=== PATIENT | female | born 1995 | race African-American/Black ===

== ENCOUNTER 2019-05-18 11:49 | Inpatient (IN) | payer OTHER ==
[2019-05-18] MEDS ORDERED: XYLOCAINE 2% INFILTRATI ONE ×2 (13:23→15:27)
[2019-05-18] MEDS ORDERED: STADOL IV PRN (13:23)
[2019-05-18] MEDS ORDERED: BRETHINE IVP PRN (13:23)
[2019-05-18] MEDS ORDERED: ZOFRAN IV PRN ×2 (13:23→20:57)
[2019-05-18] MEDS ORDERED: SUBLIMAZE IV PRN (13:23)
[2019-05-18] MEDS ORDERED: MINERAL OIL PO PRN (13:23)
[2019-05-18] MEDS ORDERED: BRETHINE SUB-Q PRN (13:23)
--- NOTE | 2019-05-18 13:23 | History and Physical Report ---
History of Present Illness Date of examination: 05/18/19 Date of admission: 05/18/19 12:52 Chief complaint: Labor History of present illness: Pt is a 23yo AF EDC 05/30/19; EGA 38 2/7 weeks presents to L&D complaining of RUC's q 3-4 mins. She received care at [facility] since 10 weeks and course has been unremarkable. records are available and GBS is Negative. Past History Past Medical History: no pertinent history Past Surgical History: no surgical history Family/Genetic History: none Social history: no significant social history, single - Obstetrical History Expected Date of Delivery: 05/30/19 Actual Gestation: 38 Week(s) 2 Day(s) : 1 Medications and Allergies Allergies Allergy/AdvReac Type Severity Reaction Status Date / Time No Known Allergies Allergy Verified 05/18/19 13:41 Review of Systems All systems: negative - Vital Signs Vital signs: Vital Signs Temp Resp 98.9 F 14 05/18/19 12:00 05/18/19 12:00 Temp Pulse Resp BP Pulse Ox 98.9 F 72 14 122/79 05/18/19 12:00 05/18/19 12:04 05/18/19 12:00 05/18/19 12:04 - Physical Exam Breasts: Positive: deferred Cardiovascular: Regular rate Lungs: Positive: Clear to auscultation Abdomen: Positive: normal appearance Genitourinary (Female): Positive: normal external genitalia Vagina: Positive: normal moisture Uterus: Positive: enlarged Extremities: Positive: normal - Obstetrical FHR: category 1 Uterine Contraction Monitor Mode: External Uterine Tone Measurement Phase: Contraction Uterine Contraction Intensity: Strong/Firm Results Result Diagrams: 05/18/19 13:55 All other labs normal. Assessment and Plan - Patient Problems (1) 38 weeks gestation of Onset Date: 05/18/19 Current Visit: Yes Status: Acute Plan to address problem: A: IUP @ 38 2/7 weeks in labor P: Admit to L&D for expectant vaginal delivery
[2019-05-18] MEDS ORDERED: PITOCin/NS 30 UNIT/500ML 30 UNITS/500 ML BAG IV SCH ×2 (14:00)
[2019-05-18] MEDS ORDERED: LACTATED RINGERS 1,000 ML IV SCH (14:00)
[2019-05-18 14:46] LABS: Hematocrit 33.2 % (30.3-42.9); Hemoglobin 11.2 gm/dl (10.1-14.3); Mean Corpuscular HGB Conc 34 % (30-34); Mean Corpuscular Volume 94 fl (79-97); Platelet Count 138 K/mm3 (140-440); Red Blood Count 3.55 M/mm3 (3.65-5.03); Red Cell Distribution Width 13.1 % (13.2-15.2)
[2019-05-18] MEDS: PITOCin/NS 20 UNIT/1000ML DRIP 20 UNITS/1,000 ML BAG IV SCH ×2 (15:34→17:17)
--- NOTE | 2019-05-18 15:51 | Procedure Note ---
OB Delivery Note - Delivery Date of Delivery: 05/18/19 Surgeon: LEO RUSSELL Estimated blood loss: other (150cc) - Vaginal Delivery presentation: vertex Delivery position: OA Intrapartum events: none Delivery induction: none Delivery augmentation: rupture of membranes Delivery monitor: external FHT, external uterine Route of delivery: Delivery placenta: spontaneous Delivery cord: nuchal cord, 3 umbilical vessels Episiotomy: none Delivery laceration: none Anesthesia: none Delivery comments: Infant delivered OA and placed on Mom's chest for [id number] bonding and delayed cord clamping, cut by Dad - Infant A at 1 minute: 8 at 5 minutes: 9 Infant Gender: Male (3358gms)
[2019-05-18] MEDS ORDERED: PITOCin/NS 20 UNIT/1000ML DRIP 20,000 MILLIUNITS/1,000 ML BAG IV ONE (18:08)
[2019-05-18] MEDS ORDERED: IBUPROFEN PO PRN (20:55)
[2019-05-18] MEDS ORDERED: NORCO 5/325 PO PRN (20:56)
[2019-05-18] MEDS ORDERED: MILK OF MAGNESIA PO PRN (20:57)
[2019-05-18] MEDS ORDERED: PHENERGAN PR PRN (20:57)
[2019-05-18] MEDS ORDERED: BENADRYL PO PRN (20:57)
[2019-05-18] MEDS ORDERED: TYLENOL PO PRN (20:57)
[2019-05-18] MEDS ORDERED: TUCKS PAD TP PRN (20:57)
[2019-05-18] MEDS ORDERED: PHENERGAN PO PRN (20:57)
[2019-05-18] MEDS ORDERED: DULCOLAX PR PRN (20:57)
[2019-05-18] MEDS ORDERED: LANSINOH TP PRN (20:57)
[2019-05-18] MEDS ORDERED: SODIUM CHLORIDE FLUSH SYRINGE 10 ML IV NR (21:00)
[2019-05-18] MEDS ORDERED: PITOCin/NS 20 UNIT/1000ML DRIP 20 UNITS/1,000 ML BAG IV SCH (21:00)
--- NOTE | 2019-05-19 06:40 | Progress Note ---
Assessment and Plan - Patient Problems (1) 38 weeks gestation of Onset Date: 05/18/19 Current Visit: Yes Status: Resolved (2) (normal spontaneous vaginal delivery) Onset Date: 05/19/19 Current Visit: Yes Status: Resolved Plan to address problem: A: S/P - PPD #1 Doing well Asymptomatic anemia - stable P: May go home tomorrow. Subjective - Subjective Date of service: 05/19/19 Principal diagnosis: s/p - PPD #1 Interval history: Pt is feeling well without complaints. Bleeding improved. Patient reports: appetite normal, voiding normally, pain well controlled, flatus, ambulating normally, no dizzy ambulation, no nauseated Onia: doing well, nursing well, bottle feeding Objective - Vital Signs Latest vital signs: Vital Signs Temp Pulse Resp BP BP Pulse Ox 05/19/19 02:05 98.3 F 85 16 118/77 99 05/18/19 19:57 98.4 F 89 16 121/78 98 05/18/19 17:45 98.5 F 84 18 121/73 97 05/18/19 17:13 98.6 F 89 16 123/71 123/71 05/18/19 16:37 81 114/63 05/18/19 16:22 89 123/77 05/18/19 16:07 82 119/74 05/18/19 15:50 98.9 F 85 18 133/69 05/18/19 13:54 98.8 F 78 16 122/68 122/68 05/18/19 12:04 72 122/79 05/18/19 12:00 98.9 F 14 Intake and Output 05/18/19 05/18/19 05/19/19 14:59 22:59 06:59 Intake Total 334.583 240 Output Total 900 700 Balance -565.417 -460 Intake: IV 214.583 PITOCin/NS 20 UNIT/1000ML 214.583 DRIP 20 units In 1,000 ml @ 125 mls/hr IV DIRECT TRINIDAD Rx#:[id number] Intake, Free Water 120 240 Output: Urine 900 700 Void 900 700 Other: Total, Output Amount 500 400 # Voids Void 1 3 Weight 67.132 kg Estimated Blood Loss 150 Patient Weight 05/19/19 06:59 Weight 67.132 kg - Exam Breasts: Present: deferred Abdomen: Present: normal appearance Uterus: Present: normal, firm, fundal height below umbilicus Extremities: Present: normal - Labs Labs: Abnormal lab results 05/18/19 Range/Units 13:55 WBC 12.7 H (4.5-11.0) K/mm3 RBC 3.55 L (3.65-5.03) M/mm3 RDW 13.1 L (13.2-15.2) % Plt Count 138 L (140-440) K/mm3 Laboratory Tests 05/18/19 05/18/19 13:55 13:55 WBC 12.7 H RBC 3.55 L Hgb 11.2 Hct 33.2 MCV 94 MCH 32 MCHC 34 RDW 13.1 L Plt Count 138 L Blood Type A POSITIVE Antibody Screen Negative
--- NOTE | 2019-05-19 07:16 | Discharge Summary ---
Providers - Providers Date of Admission: 05/18/19 12:52 Date of discharge: 05/20/19 Attending physician: LEO RUSSELL Primary care physician: LEO RUSSELL Hospitalization Reason for admission: active labor, rupture of membranes, IUP at term Delivery: Episiotomy: none Laceration: none Incision: normal Other procedures: none complications: none Discharge diagnosis: IUP at term delivered baby: male Hospital course: Unremarkable. Condition at discharge: Good Disposition: DC-01 TO HOME OR SELFCARE - Discharge Diagnoses (1) 38 weeks gestation of Status: Resolved (2) (normal spontaneous vaginal delivery) Status: Resolved Plan - Discharge Medications Prescriptions: Ferrous Sulfate [Feosol 325 MG tab] 325 mg PO BID #60 tablet Ibuprofen [Motrin 600 MG tab] 600 mg PO Q6H #30 tablet Vit-Fe Fumar-FA [ Vitamin] 1 each PO QDAY #30 tablet - Provider Discharge Summary Activity: routine, no sex for 6 weeks, no heavy lifting 4 weeks, no strenuous exercise Diet: routine Instructions: routine Additional instructions: [] Smoking cessation referral if applicable(refer to patient education folder for contact #) [] Refer to [facility] Booklet Call your doctor immediately for: * Fever > 100.5 * Heavy vaginal bleeding ( >1 pad per hour) * Severe persistent headache * Shortness of breath * Reddened, hot, painful area to leg or breast * Drainage or odor from incision. * Keep incision clean and dry at all times and follow doctor's instructions regarding bathing/showering - Follow up plan Follow up: LEO RUSSELL MD [Primary Care Provider] - 6 Weeks INDRA GRAY CNM [Advanced Practice Nurse] - 6 Weeks
[2019-05-19 08:56] LABS: Hematocrit 36.5 % (30.3-42.9)
[2019-05-19] MEDS: PRENATAL VITAMIN PO SCH (10:47)
[2019-05-19] MEDS: FEOSOL PO SCH ×2 (10:47→21:29)
[2019-05-19] MEDS ORDERED: BOOSTRIX IM ONE (20:57)
[2019-05-19] MEDS ORDERED: M-M-R II VACCINE SUB-Q ONE (20:57)
[2019-05-19] MEDS: COLACE PO SCH (21:29)
[2019-05-20] MEDS: IBUPROFEN PO SCH ×3 (07:18→15:38)
[2019-05-20] MEDS: FEOSOL PO SCH (11:28)
[2019-05-20] MEDS: COLACE PO SCH (11:28)
[2019-05-20] MEDS: PRENATAL VITAMIN PO SCH (11:29)
[2019-05-20 16:29] VITALS: BP 121/80
== END 2019-05-20 16:50 | disposition home or self-care (01) | DRG 775 ==
LOC: TRG 11:49 → LD 12:52 → OB 17:59
PROVIDERS: ADMIT Obstetrics & Gynecology; ATTEND Obstetrics & Gynecology
PROC: 10E0XZZ Delivery of Products of Conception, External Approach (ICD-10-PCS; principal; 2019-05-18)
PROC: 3E0234Z Introduction of Serum, Toxoid and Vaccine into Muscle, Percutaneous Approach (ICD-10-PCS; 2019-05-19)
DX: O69.81X0 Labor and delivery complicated by cord around neck, without compression, not applicable or unspecified (principal); Z3A.38 38 weeks gestation of pregnancy; Z37.0 Single live birth; Z23 Encounter for immunization; O99.02 Anemia complicating childbirth
CPT/HCPCS: 36415; 85014; 85018; 85027; 86592; 86850; 86900; 86901; G0378; A6250; J2590; J7120

== ENCOUNTER 2021-07-21 13:40 | Inpatient (IN) | payer OTHER ==
[2021-07-21] MEDS ORDERED: LACTATED RINGERS 1,000 ML ONE (15:51)
[2021-07-21] MEDS ORDERED: OXYTOCIN DRIP 30,000 MILLIUNITS/500 ML BAG IV ONE (15:51)
[2021-07-21] MEDS ORDERED: LACTATED RINGERS 1,000 ML IV SCH (16:00)
[2021-07-21] MEDS ORDERED: OXYTOCIN DRIP 30 UNITS/500 ML BAG IV SCH ×2 (16:00→17:00)
[2021-07-21] MEDS ORDERED: AMPICILLIN/NS 2 GM/100 ML 2 GM/100 ML BAG IV ONE ×2 (16:19→16:49)
[2021-07-21] MEDS ORDERED: MINERAL OIL 30 ML ORAL LIQD ONE (16:24)
[2021-07-21] MEDS ORDERED: miSOPROStol 200 MCG TAB ONE (16:34)
[2021-07-21] MEDS ORDERED: CARBOPROST TROMETHAMINE 250 MCG/1 ML INJ IM ONE (16:34)
[2021-07-21] MEDS ORDERED: DIPHENOXYLATE/ATROPINE TAB ONE (16:48)
[2021-07-21] MEDS ORDERED: CARBOPROST TROMETHAMINE 250 MCG/1 ML INJ IM PRN (16:49)
[2021-07-21] MEDS ORDERED: MINERAL OIL 30 ML ORAL LIQD PO PRN (16:49)
[2021-07-21] MEDS ORDERED: LOPERAMIDE 2 MG CAP PO PRN (16:49)
[2021-07-21] MEDS ORDERED: miSOPROStol 200 MCG TAB PR PRN (16:49)
[2021-07-21] MEDS ORDERED: HYDROcodone/ACETAMINOPHEN 5-325 MG TAB PO PRN (16:59)
[2021-07-21] MEDS ORDERED: LANOLIN/ZINC/DIMETHICONE (LANSINOH) 7 GM TP PRN (16:59)
[2021-07-21] MEDS ORDERED: ACETAMINOPHEN 325 MG TAB PO PRN (16:59)
[2021-07-21] MEDS ORDERED: PROMETHAZINE 25 MG TAB PO PRN (16:59)
[2021-07-21] MEDS ORDERED: WITCH HAZEL/ GLYCERIN PAD TP PRN (16:59)
[2021-07-21] MEDS ORDERED: diphenhydrAMINE 25 MG CAP PO PRN (16:59)
[2021-07-21] MEDS ORDERED: HYDROCORTISONE 25 MG RECTAL SUPP PR PRN (16:59)
[2021-07-21] MEDS ORDERED: BENZOCAINE/MENTHOL 20/0.5% TOP SPRAY 56 GM TP PRN (16:59)
--- NOTE | 2021-07-21 17:05 | History and Physical Report ---
History of Present Illness Date of examination: 07/21/21 Date of admission: 07/21/2021 Chief complaint: Intense Labor Pains History of present illness: Late entry to care at [facility], course uncomplicated. Past History Past Medical History: no pertinent history Past Surgical History: no surgical history DOCTOR OF NURSING PRACTICE History: chlamydia Family/Genetic History: none Social history: no significant social history, single - Obstetrical History Expected Date of Delivery: 08/02/21 Actual Gestation: 38 Week(s) 2 Day(s) : 2 Para: 1 Hx # Term Pregnancies: 1 Number of Living Children: 1 Medications and Allergies Allergies Allergy/AdvReac Type Severity Reaction Status Date / Time No Known Allergies Allergy Verified 05/18/19 13:41 Home Medications Medication Instructions Recorded Confirmed Last Taken Type Ferrous Sulfate [Feosol 325 MG tab] 325 mg PO BID #60 tablet 05/19/19 Unknown Rx Ibuprofen [Motrin 600 MG tab] 600 mg PO Q6H #30 tablet 05/19/19 Unknown Rx Vit-Fe Fumar-FA [ 1 each PO QDAY #30 tablet 05/19/19 Unknown Rx Vitamin] Active Meds: Active Medications Carboprost Tromethamine (Carboprost Tromethamine 250 Mcg/1 Ml Inj) 250 mcg IM ONCE PRN PRN Reason: Uterine Bleeding Lactated Ringer's (Lactated Ringers) 1,000 mls @ 125 mls/hr IV DIRECT [place] Oxytocin/Sodium Chloride (Pitocin/Ns 30 Unit/500ml) 30 units in 500 mls @ 0 mls/hr IV TITR [place]; Protocol Oxytocin/Sodium Chloride (Pitocin/Ns 30 Unit/500ml) 30 units in 500 mls @ 40 mls/hr IV TITR [place]; Protocol Ampicillin Sodium (Ampicillin/Ns 2 Gm/100 Ml) 2 gm in 100 mls @ 100 mls/hr IV ONCE ONE; Protocol Stop: 07/21/21 17:48 Ampicillin Sodium (Ampicillin/Ns 1 Gm/50 Ml) 1 gm in 50 mls @ 100 mls/hr IV Q4H [place]; Protocol Loperamide HCl (Loperamide 2 Mg Cap) 2 mg PO ONCE PRN PRN Reason: give with Hemabate Mineral Oil (Mineral Oil 30 Ml Oral Liqd) 30 ml PO QHS PRN PRN Reason: Constipation Misoprostol (Misoprostol 200 Mcg Tab) 800 mcg OK ONCE PRN PRN Reason: Uterine Bleeding Review of Systems All systems: negative - Vital Signs Vital signs: Vital Signs Pulse Pulse Ox 85 96 07/21/21 13:52 07/21/21 13:52 Temp Pulse Resp BP Pulse Ox 98.1 F 80 16 130/68 95 07/21/21 15:43 07/21/21 16:58 07/21/21 15:43 07/21/21 16:48 07/21/21 16:58 - Physical Exam Breasts: Positive: normal Cardiovascular: Regular rate Lungs: Positive: Clear to auscultation, Normal air movement Abdomen: Positive: normal appearance, soft, normal bowel sounds Genitourinary (Female): Positive: normal external genitalia, normal perenium Vagina: Positive: normal moisture Uterus: Positive: enlarged Anus/Rectum: Positive: normal perianal skin Extremities: Positive: normal - Obstetrical FHR: auscultation normal Uterine Contraction Monitor Mode: External Cervical Dilatation: 8 (AROM of a small amount of meconium stained fluids at 1614) Cervical Effacement Percentage: 90 station: 0 Uterine Contraction Pattern: Regular Uterine Tone Measurement Phase: Resting Uterine Contraction Intensity: Strong/Firm Results All other labs normal. Assessment and Plan A: IUP @ 38 2/7 Weeks Category I Tracing Active Labor GBS Unknown P: Admit to L&D per Routine Orders AROM GBS Prophylaxis Anticipate
[2021-07-21 17:14] LABS: Basophils % (Auto) 0.1 % (0.0-1.8); Eosinophils % (Auto) 0.2 % (0.0-4.3); Hematocrit 35.6 % (30.3-42.9); Hemoglobin 12.6 gm/dl (10.1-14.3); Lymphocytes % (Auto) 10.1 % (13.4-35.0); Mean Corpuscular HGB Conc 35 % (30-34); Mean Corpuscular Volume 93 fl (79-97); Monocytes # (Auto) 0.6 K/mm3 (0.0-0.8); Monocytes % (Auto) 5.9 % (0.0-7.3); Platelet Count 153 K/mm3 (140-440); Red Blood Count 3.84 M/mm3 (3.65-5.03); Red Cell Distribution Width 13.7 % (13.2-15.2)
--- NOTE | 2021-07-21 17:14 | Procedure Note ---
OB Delivery Note - Delivery Date of Delivery: 07/21/21 (1627) Surgeon: OZIEL SWARTZ Estimated blood loss: other (400) - Vaginal Delivery presentation: vertex Delivery position: OA Intrapartum events: meconium, precipitous labor- <3hr Delivery induction: none Delivery augmentation: rupture of membranes Delivery monitor: external FHT, external uterine Route of delivery: Delivery placenta: spontaneous Delivery cord: 3 umbilical vessels Episiotomy: none Delivery laceration: none Anesthesia: none Delivery comments: Precipitous vaginal delivery of a 8'2 male over a intact perineum without pain control with Apgars of 8 and 9 at 1627 on 07/21/2021. Cord double clamped and cut by BEULAH Swartz, Infant not stimulated and handed directly to awaiting NICU/RESP team due to meconium stained fluids. Spontaneous delivery of placenta complete and intact with Cardoza side presenting at 1631. Fundus is firm and midline located 4 below the U, but moderate amount of uterine bleeding observed. Given Hemabate 250mg IM x 1 dose and Cytotec 800mcg per rectum; vigorous external uterine massage; and uterine bleeding became scant. Placenta given to patient; Plans to take placenta home and make capsules. - Infant A at 1 minute: 8 at 5 minutes: 9 Gender: Male (8'2)
[2021-07-21] MEDS ORDERED: AMPICILLIN/NS 1 GM/50 ML 1 GM/50 ML BAG IV SCH (21:00)
[2021-07-21] MEDS: IBUPROFEN 600 MG TAB PO SCH ×2 (22:57→23:00)
[2021-07-22 05:56] LABS: Hematocrit 32.6 % (30.3-42.9)
--- NOTE | 2021-07-22 16:59 | Progress Note ---
Assessment and Plan PPD#1 doing well, will remain on PUI covid precaution due pt choice in refusal of covid test 1. Routine care Plan of care discussed and pt agrees Subjective Date of service: 07/22/21 Principal diagnosis: PPD#1 Interval history: pt has no complaints. pt declines being tested for COVID and accepts PUI precaution. Pt is bottle feeding. Vag bleed less than a period. Denies pain. Objective - Constitutional Vitals: Vital Signs - 12hr 07/22/21 07/22/21 05:10 07:50 Temperature 98.2 F 98.0 F Pulse Rate 68 72 Respiratory 18 18 Rate Blood Pressure 112/73 Blood Pressure 126/56 [Right] O2 Sat by Pulse 100 98 Oximetry General appearance: Present: no acute distress - Respiratory Respiratory effort: normal - Breasts Breasts: normal Extremities: No edema - Genitourinary Female genitourinary: other (Fundus firm 2cm below umbilicus and non-tender) - Neurologic Neurologic: moves all extremities - Psychiatric Psychiatric: cooperative - Labs CBC & Chem 7: 07/22/21 05:08 Labs: Abnormal lab results 07/21/21 Range/Units 14:55 MCH 33 H (28-32) pg MCHC 35 H (30-34) % Lymph % (Auto) 10.1 L (13.4-35.0) % Lymph # (Auto) 1.0 L (1.2-5.4) K/mm3 Seg Neutrophils % 83.7 H (40.0-70.0) % Seg Neutrophils # 8.2 H (1.8-7.7) K/mm3 Medications & Allergies - Medications Allergies/Adverse Reactions: Allergies No Known Allergies Allergy (Verified 05/18/19 13:41) Home Medications: Home Medications Medication Instructions Recorded Confirmed Last Taken Type Ferrous Sulfate [Feosol 325 MG tab] 325 mg PO BID #60 tablet 05/19/19 Unknown Rx Ibuprofen [Motrin 600 MG tab] 600 mg PO Q6H #30 tablet 05/19/19 Unknown Rx Vit-Fe Fumar-FA [ 1 each PO QDAY #30 tablet 05/19/19 Unknown Rx Vitamin] Active Medications: Generic Name Dose Route Start Last Admin Trade Name Freq PRN Reason Stop Dose Admin Acetaminophen 650 mg 07/21/21 16:59 Acetaminophen 325 Mg Tab PO Q4H PRN Pain MILD(1-3)/Fever >100.5/[place] Hydrocodone Bitart/Acetaminophen 2 each 07/21/21 16:59 Hydrocodone/Acetaminophen 5-325 Mg Tab PO Q6H PRN Pain, Moderate (4-6) Benzocaine/Menthol 1 spray 07/21/21 16:59 Benzocaine/Menthol 20/0.5% [place] 56 Gm TP PRN PRN Episiotomy Pain Bisacodyl 10 mg 07/21/21 16:59 Bisacodyl 10 Mg Rect Supp NV BID PRN Constipation Diphenhydramine HCl 25 mg 07/21/21 16:59 Diphenhydramine 25 Mg Cap PO Q6H PRN Itching Hydrocortisone Acetate 25 mg 07/21/21 16:59 Hydrocortisone 25 Mg Rectal Supp NV BID PRN Hemorrhoids Ibuprofen 600 mg 07/21/21 17:00 07/21/21 22:57 Ibuprofen 600 Mg Tab PO Not Given Q6H [facility] Multi-Ingredient Ointment 1 applic 07/21/21 16:59 Lanolin/Zinc/Dimethicone (Lansinoh) 7 Gm TP PRN PRN Sore Nipples Promethazine HCl 25 mg 07/21/21 16:59 Promethazine 25 Mg Tab PO Q6H PRN Nausea And Vomiting Sodium Chloride 10 ml 07/21/21 17:00 Sodium Chloride 0.9% 10 Ml Flush Syringe IV 07/31/21 23:59 PRN NR [place]anda/Glycerin 1 each 07/21/21 16:59 [place]anda/ Glycerin Pad TP PRN PRN Hemorrhoid/cleansing/soothing
[2021-07-22 20:37] VITALS: BP 108/72
--- NOTE | 2021-07-23 10:41 | Progress Note ---
Assessment and Plan A: PP Day #2 Stable P: Follow Routine Orders D/c home today RTO in 6 Weeks Subjective - Subjective Date of service: 07/23/21 Principal diagnosis: PPD#1 Interval history: Late entry to care at [facility], course uncomplicated. Patient reports: appetite normal, voiding normally, pain well controlled, flatus, bowel movement, ambulating normally : doing well, bottle feeding Objective - Vital Signs Latest vital signs: Vital Signs Temp Pulse Resp BP Pulse Ox Pulse Ox 07/23/21 08:50 98 07/22/21 22:20 98 07/22/21 16:45 97.9 F 85 16 108/72 97 07/22/21 13:48 98.0 F 74 16 108/68 97 - Exam Breasts: Present: normal Cardiovascular: Present: Regular rate Lungs: Present: Clear to auscultation, Normal air movement Abdomen: Present: normal appearance, soft, normal bowel sounds Uterus: Present: normal, firm, fundal height below umbilicus Extremities: Present: normal
--- NOTE | 2021-07-23 10:42 | Discharge Summary ---
Providers - Providers Date of Admission: 07/21/21 13:41 Date of discharge: 07/23/21 Attending physician: YASMIN ROLDAN JR, MD Primary care physician: YASMIN ROLDAN JR, MD Hospitalization Reason for admission: active labor Delivery: Episiotomy: none Laceration: none Other procedures: none complications: none Discharge diagnosis: IUP at term delivered baby: male Condition at discharge: Good Disposition: 01 HOME / SELF CARE / HOMELESS Plan - Provider Discharge Summary Activity: routine, no sex for 6 weeks, no heavy lifting 4 weeks, no strenuous exercise Diet: routine Instructions: routine Additional instructions: [] Smoking cessation referral if applicable(refer to patient education folder for contact #) [] Refer to [facility]'s [facility] Booklet Call your doctor immediately for: * Fever > 100.5 * Heavy vaginal bleeding ( >1 pad per hour) * Severe persistent headache * Shortness of breath * Reddened, hot, painful area to leg or breast * Drainage or odor from incision. * Keep incision clean and dry at all times and follow doctor's instructions regarding bathing/showering - Follow up plan Follow up: YASMIN ROLDAN JR, MD [Primary Care Provider] - 6 Weeks
== END 2021-07-23 12:45 | disposition home or self-care (01) | DRG 775 ==
LOC: LD 13:40 → TRG 13:40 → APU 13:41 → LD 13:41 → TRG 16:59 → OB 18:36
PROVIDERS: ADMIT Obstetrics & Gynecology; ATTEND Obstetrics & Gynecology
PROC: 10E0XZZ Delivery of Products of Conception, External Approach (ICD-10-PCS; principal; 2021-07-21)
PROC: 10907ZC Drainage of Amniotic Fluid, Therapeutic from Products of Conception, Via Natural or Artificial Opening (ICD-10-PCS; 2021-07-21)
DX: O62.3 Precipitate labor (principal); Z3A.38 38 weeks gestation of pregnancy; Z37.0 Single live birth; O77.0 Labor and delivery complicated by meconium in amniotic fluid
CPT/HCPCS: 36415; 59025; 85014; 85018; 85025; 86592; 86706; 86850; 86900; 86901; G0378; J7120